=== PATIENT | male | born 1955 | race Caucasian/White ===

== ENCOUNTER 2019-05-23 12:57 | Inpatient (IN) | payer OTHER ==
[~2019-05-23] VITALS: Ht 180.3 cm; Wt 133.4 kg
[2019-05-23 12:59] VITALS: BP 148/98
[2019-05-23] MEDS ORDERED: SINGULAIR 10 MG10 M1 PO (13:07)
[2019-05-23] MEDS ORDERED: LIPITOR 20 MG T20 M1 PO (13:07)
[2019-05-23] MEDS ORDERED: AMBIEN 5 MG TABL5 M1 PO (13:07)
[2019-05-23] MEDS ORDERED: LEXAPRO20 MG PO (13:07)
[2019-05-23 13:16] LABS: ABSOLUTE NEUTROPHILS 6.3 thou/uL (1.4-8.2); BASOPHILS 0.2 % (0.0-2.0); EOSINOPHILS 1.1 % (0.0-3.0); HEMATOCRIT 48.9 % (42.0-52.0); HEMOGLOBIN 16.6 gm/dL (14.0-18.0); LYMPHOCYTES 9.9 % (24.0-44.0); MCH 29.7 pg (26.0-34.0); MCHC 33.9 g/dL (28.0-37.0); MCV 87.8 fL (80.0-100.0); MONOCYTES 4.7 % (1.0-8.0); PLATELET COUNT 150 thou/uL (150-400); POLYS 84.1 % (36.0-66.0); RBC 5.57 mil/uL (4.50-6.00); WBC 7.5 thou/uL (4.0-11.0)
[2019-05-23 13:27] LABS: ANION GAP 7 mmol/L (7-16); BUN 20 mg/dL (7-18); CALCIUM 10.1 mg/dL (8.5-10.1); CHLORIDE 101 mmol/L (98-107); CO2 29 mmol/L (21-32); GLUCOSE 97 mg/dL (74-106); POTASSIUM 3.8 mmol/L (3.5-5.1); SODIUM 137 mmol/L (136-145)
[2019-05-23 13:36] LABS: TROPONIN-I <0.06 ng/mL (<0.06)
[2019-05-23 15:42] VITALS: BP 125/52
[2019-05-23 15:45] VITALS: BP 148/83
[2019-05-23 16:00] VITALS: BP 129/86
--- NOTE | 2019-05-23 16:21 | 2DMMODE ---
[facility] [employer] [place] [address] 2 D/M-MODE ECHOCARDIOGRAM Name: SANDY DOE Room #: 210-P [facility] IN .R.#: [id number] Admission: 05/23/19 Attend Phys: Abner Sol, Discharge: Date of : 57 Date of Service: 05/23/19 1620 Report #: [id number] THIS REPORT FOR: //name// APPROVED REPORT Study performed: 05/23/2019 14:55:04 EXAM: Comprehensive 2D, Doppler, and color-flow Echocardiogram Patient Location: ER Status: routine BSA: 2.44 HR: 64 bpm BP: 125/52 mmHg Rhythm: NSRPVCS Other Information Study Quality: Adequate Technically limited study due to obesity. Indications Chest Pain 2D Dimensions IVSd: 13.17 (7-11mm) LVOT Diam: 23.44 (18-24mm) LVDd: 57.37 mm PWd: 10.95 (7-11mm) Ascending Ao: 37.05 (22-36mm) LVDs: 41.18 (25-40mm) Aortic Root: 42.59 mm Volumes Left Atrial Volume (Systole) Single Plane 4CH: 50.37 mL Single Plane 2CH: 52.14 mL LA ESV Index: 23.00 mL/m2 Aortic Valve AoV Peak Sandro.: 1.45 m/s AO Peak Gr.: 8.38 mmHg LVOT Max P.18 mmHg LVOT Max V: 1.24 m/s PERNELL Vmax: 3.70 cm2 Mitral Valve E/A Ratio: 0.9 MV Decel. Time: 196.86 ms MV E Max Sandro.: 0.70 m/s [facility] [address] [place] [address] 2 D/M-MODE ECHOCARDIOGRAM Name: SANDY DOE Room #: 210-P [facility] IN ..#: [id number] Admission: 05/23/19 Attend Phys: Abner Sol, Discharge: Date of : 57 Date of Service: 05/23/19 1620 Report #: [id number] MV A Sandro.: 0.82 m/s MV PHT: 57.09 ms IVRT: 73.82 ms Pulmonary Valve PV Peak Sandro.: 0.86 m/s PV Peak Gr.: 2.97 mmHg Pulmonary Vein P Vein S: 0.60 m/s P Vein A: 0.31 m/s P Vein D: 0.46 m/s P Vein A Dur.: 138.4 msec P Vein S/D Ratio: 1.30 Tricuspid Valve TR Peak Sandro.: 2.04 m/s RAP Estimate: 5.00 mmHg TR Peak Gr.: 16.70 mmHg PA Pressure: 22.00 mmHg Left Ventricle The left ventricle is normal size. There is normal LV segmental wall motion. Mild basal septal hypertrophy is present. Left ventricular systolic function is normal. LVEF is 55-60%. Mild diastolic dysfunction Right Ventricle Right ventricle is mildly dilated. The right ventricular systolic function is low normal. Atria The left atrium size is normal. Right atrium is at the upper limits of normal. Aortic Valve The aortic valve is normal in structure. No aortic regurgitation is present. There is no aortic valvular stenosis. Mitral Valve Mild mitral annular calcification. No mitral regurgitation. Tricuspid Valve The tricuspid valve is normal in structure. Trace tricuspid regurgitation. Estimated PAP is 25mmHg. Pulmonic Valve The pulmonary valve is normal in structure. Trace pulmonic regurgitation. [facility] [address] [place] [address] 2 D/M-MODE ECHOCARDIOGRAM Name: SANDY DOE Room #: 210-P [facility] IN .R.#: [id number] Admission: 05/23/19 Attend Phys: Abner Sol, Discharge: Date of : 57 Date of Service: 05/23/19 1620 Report #: [id number] [employer]els Aortic root is dilated at 4.3cm. The ascending aorta is normal in size. IVC is normal in size and collapses >50% with inspiration. Pericardium There is no pericardial effusion. <Conclusion> Left ventricular systolic function is normal. There is normal LV segmental wall motion. LVEF is 55-60%. Mild diastolic dysfunction Right ventricle is mildly dilated. The aortic valve is normal in structure. No aortic regurgitation or stenosis. Mild mitral annular calcification. No mitral regurgitation. Trace tricuspid regurgitation. Estimated pulmonary artery pressure of 25mmHg. There is no pericardial effusion. <ELECTRONICALLY SIGNED> By: Ike Dasilva MD, [facility] 05/23/191619 19 19 Ike Dasilva MD, FACC /INF
--- NOTE | 2019-05-23 16:32 | EKG ---
[address] [place] [address] ELECTROCARDIOGRAM REPORT Name: SANDY DOE Room #: 210-P ADM IN M.R.#: [id number] Admission: 05/23/19 Attend Phys: Abner Sol MD, Discharge: Date of : 57 Report #: [id number] THIS REPORT FOR: //name// [facility] ED Test Date: 2019-05-23 Test Time: 12:59:48 Pat Name: SANDY DOE Department: Room: 210 Gender: M [employer] Operator: LEÓN : 1955 Requested By: Mili Vincent Order Number: [id number] MD: Onesimo Mason Measurements Intervals [place] Rate: 80 P: 20 MD: 155 QRS: -19 QRSD: 156 T: -6 QT: 390 QTc: 450 Interpretive Statements Sinus rhythm Right bundle branch block Compared to ECG 08/16/2005 17:58:24 Right bundle-branch block now present Electronically Signed On 05-23-2019 16:31:47 CDT by Onesimo Mason [email or web address] <ELECTRONICALLY SIGNED> By: Onesimo Mason MD 05/23/19 1631 1259 [id number] Onesimo Mason MD /JOELLE
--- NOTE | 2019-05-23 17:17 | NUR ---
PT CARE ASSUMED APPROX 1600. PT ALERT AND ORIENTED X4. DENIES PAIN AND SOA. VSS. PT UP WITH STEADY GAIT. DENIES QUESITONS OR CONCERNS REGARDING POC. TO COME TO BEDSIDE LATER THIS EVENING. PT DENIES ANY NEEDS AT THIS TIME.
[2019-05-23 20:03] VITALS: BP 136/93
--- NOTE | 2019-05-24 06:38 | NUR ---
PATIENTS CARES WERE ASSUMED AT 2300 DUE TO NURSE RELEASED. PATIENT WAS ASSESSED AND PATIENT REQUESTED MEDS FOR HIS HEAD ACHE. MEDS WERE GIVEN. HOURLY ROUNDING WAS DONE. THE BED IS IN A LOW AND LOCKED POSITION.
[2019-05-24 07:53] LABS: CHOLESTEROL 134 mg/dL (<200); HDL CHOLESTEROL 60 mg/dL (>40); LDL CHOLESTEROL 58 mg/dL (<100); TC:HDL 2.2 Ratio (Not establshd); TRIGLYCERIDE 81 mg/dL (<150); VLDL 16 mg/dL (<40)
[2019-05-24 08:04] VITALS: BP 123/84
--- NOTE | 2019-05-24 11:15 | EXE ---
[facility] [employer] [place] [address] STRESS ECHOCARDIOGRAM Name: SANDY DOE Jason Room #: 210-P ADM IN M.R.#: [id number] Admission: 05/23/19 Attend Phys: Abner Sol, Discharge: Date of : 57 Date of Service: 05/24/19 1115 Report #: [id number] THIS REPORT FOR: //name// APPROVED REPORT Study performed: 05/24/2019 08:17:04 Exam: Stress Echocardiogram Indication: Chest pain Patient Location: Echo lab Stress Nurse: Barbara MATAMOROS Room #: 210 Status: routine Ht: 5 ft 11 in HR: 73 bpm BP: 126/84 mmHg Rhythm: NSR Medical History Medical History: Hyperlipidemia Allergies: No known drug allergies Cardiac Risk Factors: FHX of CAD, Hyperlipidemia Exercise History: Indeterminate Procedure The patient underwent an Exercise Stress Test using the Santos Protocol. Blood pressure, heart rate, and EKG were monitored. An Echocardiogram was performed by biofuels processing technician in four stages in quad fashion. At peak stress, four selected images were obtained and placed side by side with resting images for comparison. Stress Test Details Stress Test: Exercise stress testing was performed using a Santos protocol. HR Resting HR: 73 bpm Max Heart Rate (APMHR): 157 bpm Max HR Achieved: 150 bpm Target HR (85% APMHR): 133 bpm % of APMHR: 95 Recovery HR: 84 bpm HR response to stress: Normal HR response to stress BP Resting BP: 126/84 mmHg Max BP: 154/78 mmHg Recovery BP: 118/72 mmHg [facility] [address] [place] [address] STRESS ECHOCARDIOGRAM Name: SANDY DOE Room #: 210-P [facility] IN M.R.#: [id number] Admission: 05/23/19 Attend Phys: Abner Sol, Discharge: Date of : 57 Date of Service: 05/24/19 1115 Report #: [id number] BP response to stress: Normal blood pressure response to stress. ECG Clinical Reason for Termination: Maximal effort Exercise duration: 8 min 28 sec Highest Stage Achieved: Stage 3: 3.4 mph at 14% grade. Exercise capacity: 10.4 METs Pre-Stress Echo The resting Echocardiogram showed normal left ventricular contractility with an estimated Ejection Fraction of about >55%. The resting echocardiogram demonstrated normal wall motion in all wall segments. Post-Stress Echo The stress Echocardiogram showed normal left ventricular contractility with an estimated Ejection Fraction of about >70%. Compared to rest, there were no stress-induced wall motion abnormalities. Conclusion Clinical Response: Non-ischemic Exercise Capacity: Average Stress ECG Response: Non-ischemic Stress Echo Images: Non-ischemic No prior study available for comparison. Other Information Study Quality: Good <ELECTRONICALLY SIGNED> By: Abner Sol MD, FAC 05/24/19 1115 1115 1115 Abner Sol MD, [facility] /INF
[2019-05-24 11:42] VITALS: BP 123/84
--- NOTE | 2019-05-24 12:13 | H ---
[facility] [place] [address] HISTORY AND PHYSICAL Name: SANDY DOE Room #: 210-P ADM IN M.R.#: [id number] Admission: 05/23/19 Attend Phys: Abner Sol MD, Discharge: Date of : 57 Report #: [id number] THIS REPORT FOR: //name// CC: Abner Winchester MD DATE OF SERVICE: 05/23/2019 HISTORY OF PRESENT ILLNESS: The patient is a 64-year-old male who has presented to the emergency room here with an onset of chest pain, pressure approximately 11:30 a.m. He was working from home and felt some intense cold and this is very unusual for him to feel and then became hot associated with some substernal chest discomfort, epigastric and left side of the chest. He had a little bit of mild nausea with this and then eventually did have some shortness of breath, but no significant diaphoresis. Initially felt this to be something he never felt before 05/20 and then subsequently came here to the Emergency Room 01/18 with an aspirin. He was given some morphine by the nurse practitioner in the Emergency Room. EKG is right bundle with nonspecific changes, sinus rhythm. He does note over the last month intermittently he has had difficulty with exercise, but not every time, but has felt extremely fatigued, been under a lot of stress. Denies PND, orthopnea, occasional peripheral edema. He has never been treated for blood pressure, it has been borderline. He is treated for his lipids. CURRENT MEDICATIONS: Atorvastatin 20, Ambien p.r.n. at night, Singulair 10 mg at night, Lexapro 10, Cialis 5 mg daily. PAST MEDICAL HISTORY: Positive for the borderline hypertension and hypercholesterolemia. He has had prior stress test by ____ but a few years ago. PAST SURGICAL HISTORY: No significant remote surgeries. SOCIAL HISTORY: Works from home. He is . His children are grown. Minimal alcohol, no tobacco. FAMILY HISTORY: Negative for premature coronary disease in grandfather possibly. REVIEW OF SYSTEMS: Negative except for stated above, some nocturia. ALLERGIES: No known drug allergies. PHYSICAL EXAMINATION: GENERAL: Pleasant, alert, in no current distress. VITAL SIGNS: Pulse 70s, blood pressure 134/86. [address] [address] HISTORY AND PHYSICAL Name: SANDY DOE Room #: [address] [place] [address] IN M.R.#: [id number] Admission: 05/23/19 Attend Phys: Abner Sol MD, Discharge: Date of : 57 Report #: [id number] HEENT: Eyes reveal xanthelasmas. Pharynx is clear. NECK: Shows preserved upstrokes without JVD or bruits. LUNGS: Clear. CARDIOVASCULAR: Regular rate and rhythm, S1, S2. ABDOMEN: Slightly obese, slightly tender in the epigastric. EXTREMITIES: Reveal trace of edema. His pulses diminished, but intact. NEUROLOGIC: Nonfocal. SKIN: Warm and dry without xanthoma or ulcer. MUSCULOSKELETAL: No gross joint deformity. ASSESSMENT: 1. Chest pain, possible anginal equivalent. 2. Hypercholesterolemia. 3. Positive family history of premature coronary artery disease. RECOMMENDATIONS AND PLAN: We will rule out with serial troponin. We will obtain echo Doppler. We will repeat EKG in the morning. If enzymes are negative, recommend stress testing. If abnormal enzymes, then would proceed to the cardiac catheterization lab to delineate the anatomy. Risks, benefits, alternatives were discussed. The patient and Mrs. Doe will admit to the CCU. Thank you for asking us to assist in the care of this patient. <ELECTRONICALLY SIGNED> By: Abner Sol MD, FACC 05/24/19 1213 1501 1520 Abner Sol MD, FACC /nt
== END 2019-05-24 13:00 | disposition home or self-care (01) | DRG 313 ==
LOC: ER 12:57 → EROBS 15:15 → 2N 15:15
PROVIDERS: Nurse Practitioner; Nurse Practitioner Adult Health; ADMIT Internal Medicine Cardiovascular Disease
DX: R07.89 Other chest pain (principal); Z68.41 Body mass index [BMI] 40.0-44.9, adult; E78.00 Pure hypercholesterolemia, unspecified; E78.5 Hyperlipidemia, unspecified; G47.33 Obstructive sleep apnea (adult) (pediatric); E66.9 Obesity, unspecified; Z82.49 Family history of ischemic heart disease and other diseases of the circulatory system
CPT/HCPCS: 10081

== ENCOUNTER → 2019-05-25 | Outpatient (CLI) | payer OTHER ==
[~2019-05-25] MED LIST: AMBIEN 5 MG TABL5 M1 PO; LEXAPRO20 MG PO; LIPITOR 20 MG T20 M1 PO; SINGULAIR 10 MG10 M1 PO
== END ==
LOC: CAT 10:33
DX: Z13.6 Encounter for screening for cardiovascular disorders (principal); E78.00 Pure hypercholesterolemia, unspecified; I25.10 Atherosclerotic heart disease of native coronary artery without angina pectoris

== ENCOUNTER → 2020-12-19 | Outpatient (CLI) | payer OTHER | LOC: SJCVCIMAG 08:40 | PROVIDERS: ATTEND Internal Medicine Cardiovascular Disease | DX: I45.10 Unspecified right bundle-branch block (principal); I25.10 Atherosclerotic heart disease of native coronary artery without angina pectoris; G47.33 Obstructive sleep apnea (adult) (pediatric); I10 Essential (primary) hypertension; E78.00 Pure hypercholesterolemia, unspecified; E78.5 Hyperlipidemia, unspecified; R53.83 Other fatigue ==